=== PATIENT | male | born 1990 | race Caucasian/White ===

== ENCOUNTER 2021-07-07 20:32 | Emergency (ER) | payer BC ==
[2021-07-07] MEDS ORDERED: DEXAMETHASONE 10 MG/ML VIAL PO STA (21:43)
[2021-07-07] MEDS ORDERED: CHERRY SYRUP 10 ML UDC PO ONE (21:43)
[2021-07-07] MEDS ORDERED: CLINDAMYCIN 150 MG CAPSULE PO STA (21:44)
[2021-07-07] MEDS ORDERED: BACITRACIN ZINC OINT 1 PACKET TOP STA (21:46)
--- NOTE | 2021-07-07 21:51 | ED Physician Documentation ---
PD HPI SKIN - Stated complaint Stated Complaint: ECZEMA ON HANDS - Chief complaint Chief Complaint: Wound - History obtained from History obtained from: Patient - Additional information Additional information: 31-year-old man with history of eczema, presents with bilateral wrist eczematous reaction, flexural surfaces elbow eczema, and chest eczema that has progressively worsened over the past week. Patient has been putting dry bandages on it without improvement. Denies fevers but does endorse worsening redness and itching/pain. Review of Systems Skin: reports: Rash PD PAST MEDICAL HISTORY - Past Medical History Past Medical History: Yes Other Past Medical History: ECZEMA - Past Surgical History Past Surgical History: No - Present Medications Home Medications: Ambulatory Orders Medication Instructions Recorded Confirmed Clindamycin [Cleocin] 450 mg PO TID 7 Days #21 tab 07/07/21 Triamcinolone 0.1% Oint 1 applic TOP BID 14 Days #80 gm 07/07/21 - Allergies Allergies/Adverse Reactions: Allergies Allergy/AdvReac Type Severity Reaction Status Date / Time No Known Drug Allergies Allergy Verified 07/07/21 20:36 - Social History Does the pt smoke?: No Smoking Status: Never smoker Does the pt have substance abuse?: No - Immunizations Immunizations are current?: Yes - POLST Patient has POLST: No PD ED PE NORMAL - Vitals Vital signs reviewed: Yes - General General: Alert and oriented X 3, No acute distress, Well developed/nourished - HEENT HEENT: Atraumatic, PERRL, EOMI - Derm Derm: Normal color, Warm and dry, Other (Eczematous reaction to bilateral wrists, flexural creases of elbows, and chest with overlying cellulitis.) - Extremities Extremities: No deformity Results - Vitals Vitals: Vital Signs - 24 hr 07/07/21 07/07/21 20:36 22:31 Temperature 36.5 C 36.3 C L Heart Rate 100 83 Respiratory 16 18 Rate Blood Pressure 160/80 H 136/87 H O2 Saturation 98 98 Oxygen O2 Source Room air PD MEDICAL DECISION MAKING - ED course ED course: 31-year-old man presents with severe eczematous reaction with overlying cellulitis. Antibiotic prescribed as well as steroid ointment. Strict return precautions given. He will follow up with walk-in clinic. Departure - Departure Disposition: 01 Home, Self Care Clinical Impression: Eczema, Cellulitis Condition: Good Instructions: Cellulitis Dc Prescriptions: Clindamycin [Cleocin] 450 mg PO TID 7 Days #21 tab Triamcinolone 0.1% Oint 1 applic TOP BID 14 Days #80 gm Comments: You are seen in the emergency department for severe eczema reaction with overlying bacterial infection. You should take your antibiotics as prescribed and follow-up with [facility] this week for wound check. Return to the emergency department if you have a temperature higher than 100.4, if your symptoms are not improving, or if you have any other concerns. Forms: Activity restrictions Discharge Date/Time: 07/07/21 22:31
[2021-07-07 22:34] VITALS: BP 136/87
== END 2021-07-07 22:31 | disposition home or self-care (01) ==
LOC: ED 20:32
DX: L30.9 Dermatitis, unspecified (principal); L03.114 Cellulitis of left upper limb; L03.113 Cellulitis of right upper limb; L03.313 Cellulitis of chest wall
CPT/HCPCS: 99282; 99283; A9270